=== PATIENT | male | born 1980 | race Native Hawaiian/Other Pacific Islander ===

== ENCOUNTER 2018-09-29 12:18 | Emergency (ER) | payer OTHER ==
[2018-09-29 12:23] VITALS: BP 134/88; PULSE 59; RESP 18; TEMP 97.9
[2018-09-29] MEDS ORDERED: ONDANSETRON 4 MG/2 ML VIAL IVP STA (12:53)
[2018-09-29] MEDS ORDERED: SODIUM CHLORIDE 0.9% 1,000 ML IV STA (12:53)
--- NOTE | 2018-09-29 13:00 | ED ---
General Adult HPI - General Chief complaint: Dizziness Stated complaint: Light Headed, Nausea Source: patient, RN notes reviewed, old records reviewed Mode of arrival: ambulatory Limitations: no limitations - History of Present Illness Initial comments: 38-year-old male patient with no pertinent past medical history presents to ED with dizziness, nausea. Patient states that this is been ongoing since approximately July. Patient reports that on 08/30 he presented to urgent care in [place] for this problem. Patient states that the laboratory investigations and told him that "his red blood cell count was low". Patient is scheduled to follow up with a [facility] template inspector on 10/18 for this problem. Patient comes in today because while at work he began to experience lightheadedness, nausea. 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 Patient denies syncope, presyncope, chest pain, shortness of breath, difficulty breathing, heart palpitations, fever/chills, vomiting and diarrhea. Systemic: Pt denies fatigue, myalgia, fever/chills, rash. Pt denies weakness, night sweats, weight loss. Neuro: Pt denies headache, visual disturbances, syncope or pre-syncope. HEENT: Pt denies ocular discharge or irritation, otalgia, rhinorrhea, pharyngitis or notable lymphadenopathy. Cardiopulmonary: Pt denies chest pain, SOB, heart palpitations, dyspnea on exertion. Abdominal/GI: Pt denies abdominal pain, v/d. : Pt denies dysuria, burning w/ urination, frequency/urgency. Denies new onset urinary or bowel incontinence. MSK: Pt denies myalgia, loss of strength or function in extremities. - Related Data Home Medications Medication Instructions Recorded Confirmed Cyanocobalamin (Vitamin B-12) 2,500 mcg PO DAILY 09/29/18 09/29/18 [Vitamin B12] Dextroamphetamine/Amphetamine 15 mg PO QAM 09/29/18 09/29/18 [Adderall Xr] Iron 18 mg PO DAILY 09/29/18 09/29/18 Naproxen 500 mg PO BID PRN 09/29/18 09/29/18 Allergies Allergy/AdvReac Type Severity Reaction Status Date / Time morphine Allergy Unknown Verified 09/29/18 13:44 Review of Systems ROS Statement: Those systems with pertinent positive or pertinent negative responses have been documented in the HPI. ROS Other: All systems not noted in ROS Statement are negative. Past Medical History Past Medical History: No Reported History History of Any Multi-Drug Resistant Organisms: None Reported Past Surgical History: Appendectomy, Orthopedic Surgery Past Psychological History: No Psychological Hx Reported Smoking Status: Never smoker Past Alcohol Use History: Occasional Past Drug Use History: None Reported General Exam - General Exam Comments Initial Comments: Constitutional: NAD, AOX3, Pt has pleasant affect. HEENT: NC/AT, trachea midline, neck supple, no lymphadenopathy. Posterior pharynx non erythematous, without exudates. External ears appear normal, without discharge. Mucous membranes moist. Eyes PERRLA, EOM intact. There is no scleral icterus. No pallor noted. Cardiopulmonary: RRR, no murmurs, rubs or gallops, no JVD noted. Lungs CTAB in anterior and posterior beckwith. No peripheral edema. Abdominal exam: Abdomen soft and non-distended. Abdomen non-tender to palpation in all 4 quadrants. Bowel sounds active in LLQ. No hepatosplenomegaly. Neuro: CN II-XII intact. Eyes PERRLA, EOM intact. No focal deficit. No facial droop. Derm: No ecchymosis noted on body. MSK: No cervical spine tenderness. No thoracic or lumbar spinal tenderness. 5 out of 5 strength in upper and lower extremities. Posterior tibialis pulse +2 bilaterally. Radial pulse +2 bilaterally. Full sensation upper and lower extremities. Limitations: no limitations Course Vital Signs 09/29/18 12:19 Temperature 97.9 F Pulse Rate 59 L Respiratory 18 Rate Blood Pressure 134/88 O2 Sat by Pulse 98 Oximetry Medical Decision Making - Medical Decision Making 30-year-old male patient with no pertinent past medical history presents to ED with dizziness, nausea. Patient states that this is been ongoing since approximately July. Patient reports that on 08/30 he presented to urgent care in [place] for this problem. Patient states that the laboratory investigations and told him that "his red blood cell count was low". Patient is scheduled to follow up with a [facility] template inspector on 10/18 for this problem. Patient comes in today because while at work he began to experience lightheadedness, nausea. 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 Patient denies syncope, presyncope, chest pain, shortness of breath, difficulty breathing, heart palpitations, fever/chills, vomiting and diarrhea. Physical exam patient did not display acute pathology. Neuro exam was within normal limits. No focal deficit, patient AOX3. Cardiopulmonary exam displayed regular rate and rhythm, lungs CTAB. Abdomen is nontender to palpation, no ecchymoses. Laboratory investigations were conducted including CBC, CMP. Both of them were not impressive. EKG did not display concern for acute ischemia. Patient did not submit order a urine sample. Patient declined IV fluids, Zofran for nausea. The offered both the patient, patient states he rather discussed home and rest he knows his blood count is normal. Patient notes that he has had moderately decreased by mouth intake of fluids today secondary to work. Discussed with patient that this could be contributory to his lightheadedness with exertion. Patient to follow-up with his PCP in 1-2 days. Patient to attend the template inspector appointment on 10/18. Patient to return to ED if any new signs or symptoms develop including chest pain, shortness of breath, presyncope, syncope, nausea vomiting diarrhea, abdominal pain, any other new symptoms. Case discussed with Dr. Hall. - Lab Data Result diagrams: 09/29/18 13:12 09/29/18 13:12 Lab Results 09/29/18 09/29/18 Range/Units 13:12 13:12 WBC 5.5 (3.8-10.6) k/uL RBC 5.15 (4.30-5.90) m/uL Hgb 14.2 (13.0-17.5) gm/dL Hct 42.8 (39.0-53.0) % MCV 83.2 (80.0-100.0) fL MCH 27.5 (25.0-35.0) pg MCHC 33.1 (31.0-37.0) g/dL RDW 14.0 (11.5-15.5) % Plt Count 223 (150-450) k/uL Neutrophils % 54 % Lymphocytes % 36 % Monocytes % 5 % Eosinophils % 2 % Basophils % 0 % Neutrophils # 3.0 (1.3-7.7) k/uL Lymphocytes # 2.0 (1.0-4.8) k/uL Monocytes # 0.3 (0-1.0) k/uL Eosinophils # 0.1 (0-0.7) k/uL Basophils # 0.0 (0-0.2) k/uL Sodium 143 (137-145) mmol/L Potassium 3.8 (3.5-5.1) mmol/L Chloride 105 (98-107) mmol/L Carbon Dioxide 27 (22-30) mmol/L Anion Gap 11 mmol/L BUN 13 (9-20) mg/dL Creatinine 0.84 (0.66-1.25) mg/dL Est GFR (CKD-EPI)AfAm >90 (>60 ml/min/1.73 sqM) Est GFR (CKD-EPI)NonAf >90 (>60 ml/min/1.73 sqM) Glucose 102 H (74-99) mg/dL Calcium 9.5 (8.4-10.2) mg/dL Total Bilirubin 0.6 (0.2-1.3) mg/dL AST 40 (17-59) U/L ALT 58 (21-72) U/L Alkaline Phosphatase 75 (38-126) U/L Total Protein 7.5 (6.3-8.2) g/dL Albumin 4.6 (3.5-5.0) g/dL Disposition Clinical Impression: Dizziness Disposition: HOME SELF-CARE Condition: Good Instructions: Dizziness (ED) Additional Instructions: Patient to adhere to previously discussed treatment plan and will take medication(s) as directed. Patient to follow up with PCP in 1-2 days. Patient to return to ED if symptoms do not improve. Is patient prescribed a controlled substance at d/c from ED?: No Referrals: None,Stated [Primary Care Provider] - 1-2 days Dannielle Kauffman MD [REFERRING] - 1-2 days Time of Disposition: 14:30
[2018-09-29] MEDS ORDERED: SODIUM CHLORIDE 0.9% 500 ML 500 ML IV STA (13:01)
[2018-09-29 13:34] LABS: Basophils % (A) 0 %; Eosinophils # (A) 0.1 k/uL (0-0.7); Eosinophils % (A) 2 %; HCT 42.8 % (39.0-53.0); HGB 14.2 gm/dL (13.0-17.5); Lymphocytes % (A) 36 %; MCH 27.5 pg (25.0-35.0); MCHC 33.1 g/dL (31.0-37.0); MCV 83.2 fL (80.0-100.0); Mean Platelet Volume 8.7; Monocytes # (A) 0.3 k/uL (0-1.0); Monocytes % (A) 5 %; Neutrophils % (A) 54 %; Platelet Count 223 k/uL (150-450); RBC 5.15 m/uL (4.30-5.90); WBC 5.5 k/uL (3.8-10.6)
[2018-09-29 13:49] LABS: ALT 58 U/L (21-72); AST 40 U/L (17-59); Albumin 4.6 g/dL (3.5-5.0); Alkaline Phosphatase 75 U/L (38-126); Anion Gap 11 mmol/L; Blood Urea Nitrogen 13 mg/dL (9-20); Calcium 9.5 mg/dL (8.4-10.2); Carbon Dioxide 27 mmol/L (22-30); Chloride 105 mmol/L (98-107); Glucose 102 mg/dL (74-99); Potassium 3.8 mmol/L (3.5-5.1); Sodium 143 mmol/L (137-145); Total Bilirubin 0.6 mg/dL (0.2-1.3); Total Protein 7.5 g/dL (6.3-8.2)
--- NOTE | 2018-09-30 11:57 | ED ---
Medical Decision Making - Lab Data Result diagrams: 09/29/18 13:12 09/29/18 13:12 Lab Results 09/29/18 09/29/18 Range/Units 13:12 13:12 WBC 5.5 (3.8-10.6) k/uL RBC 5.15 (4.30-5.90) m/uL Hgb 14.2 (13.0-17.5) gm/dL Hct 42.8 (39.0-53.0) % MCV 83.2 (80.0-100.0) fL MCH 27.5 (25.0-35.0) pg MCHC 33.1 (31.0-37.0) g/dL RDW 14.0 (11.5-15.5) % Plt Count 223 (150-450) k/uL Neutrophils % 54 % Lymphocytes % 36 % Monocytes % 5 % Eosinophils % 2 % Basophils % 0 % Neutrophils # 3.0 (1.3-7.7) k/uL Lymphocytes # 2.0 (1.0-4.8) k/uL Monocytes # 0.3 (0-1.0) k/uL Eosinophils # 0.1 (0-0.7) k/uL Basophils # 0.0 (0-0.2) k/uL Sodium 143 (137-145) mmol/L Potassium 3.8 (3.5-5.1) mmol/L Chloride 105 (98-107) mmol/L Carbon Dioxide 27 (22-30) mmol/L Anion Gap 11 mmol/L BUN 13 (9-20) mg/dL Creatinine 0.84 (0.66-1.25) mg/dL Est GFR (CKD-EPI)AfAm >90 (>60 ml/min/1.73 sqM) Est GFR (CKD-EPI)NonAf >90 (>60 ml/min/1.73 sqM) Glucose 102 H (74-99) mg/dL Calcium 9.5 (8.4-10.2) mg/dL Total Bilirubin 0.6 (0.2-1.3) mg/dL AST 40 (17-59) U/L ALT 58 (21-72) U/L Alkaline Phosphatase 75 (38-126) U/L Total Protein 7.5 (6.3-8.2) g/dL Albumin 4.6 (3.5-5.0) g/dL - EKG Data -: EKG Interpreted by Me EKG Comments: ventricular rate 51, MN interval 186, QRS 100, QT/QTc 462/425, sinus bradycardia , no concerns for acute ischemia. Disposition Clinical Impression: Dizziness Disposition: HOME SELF-CARE Condition: Good Instructions: Dizziness (ED) Additional Instructions: Patient to adhere to previously discussed treatment plan and will take medication(s) as directed. Patient to follow up with PCP in 1-2 days. Patient to return to ED if symptoms do not improve. Is patient prescribed a controlled substance at d/c from ED?: No Referrals: Dannielle Kauffman MD [REFERRING] - 1-2 days None,Stated [Primary Care Provider] - 1-2 days
== END 2018-09-29 14:40 | disposition home or self-care (01) ==
LOC: EC 12:18
DX: R42 Dizziness and giddiness (principal); R11.0 Nausea; Z79.899 Other long term (current) drug therapy; Z88.5 Allergy status to narcotic agent; Z53.29 Procedure and treatment not carried out because of patient's decision for other reasons
CPT/HCPCS: 36415; 80053; 85025; 93005; 99284

== ENCOUNTER 2022-12-02 07:22 | Emergency (ER) | payer OTHER ==
[2022-12-02 07:27] VITALS: TEMP 98
[2022-12-02] MEDS ORDERED: PROPARACAINE 0.5% OPHTH DROPS 15 ML BTL LEFT EYE STA (07:31)
[2022-12-02] MEDS ORDERED: FLUORESCEIN STRIPS 1 MG STRIP LEFT EYE ONE (07:31)
--- NOTE | 2022-12-02 08:01 | ED ---
Eye Problem HPI - General Chief complaint: Eye Problems Stated complaint: Eye injury Time Seen by Provider: 12/02/22 07:31 Source: patient, RN notes reviewed Mode of arrival: ambulatory Limitations: no limitations - History of Present Illness Initial comments: 42-year-old male presents emergency Department chief complaint left eye trauma. He states on Tuesday summary to a baseball Struck him in his left thigh. He states that he noticed some blood from his eye he states that he had some discomfort but managed Tuesday and Tuesday but states overnight he's had severe pain to his left eye. He states cannot open his eye is very photophobic, states his vision is very blurry his left eye. Patient denies any evaluation of this eye no prior issues. Patient states he has no blurred vision of his right eye he states his left eye is been tearing - Related Data Home Medications Medication Instructions Recorded Confirmed Cyanocobalamin (Vitamin B-12) 2,500 mcg PO DAILY 09/29/18 09/29/18 [Vitamin B12] Dextroamphetamine/Amphetamine 15 mg PO QAM 09/29/18 09/29/18 [Adderall Xr] Iron 18 mg PO DAILY 09/29/18 09/29/18 Naproxen 500 mg PO BID PRN 09/29/18 09/29/18 Allergies Allergy/AdvReac Type Severity Reaction Status Date / Time morphine Allergy Unknown Verified 12/02/22 07:23 Review of Systems ROS Statement: Those systems with pertinent positive or pertinent negative responses have been documented in the HPI. ROS Other: All systems not noted in ROS Statement are negative. Past Medical History Past Medical History: No Reported History History of Any Multi-Drug Resistant Organisms: None Reported Past Surgical History: Appendectomy, Orthopedic Surgery Past Psychological History: No Psychological Hx Reported Smoking Status: Never smoker Past Alcohol Use History: Occasional Past Drug Use History: None Reported General Exam Limitations: no limitations General appearance: alert, in no apparent distress Head exam: Present: atraumatic, normocephalic, normal inspection Eye exam: Present: PERRL, EOMI, conjunctival injection (Subconjunctival hemorrhage in the left), other (No hyphema). Absent: normal appearance, scleral icterus, periorbital swelling Pupils: Present: other (Intraocular pressure on the left 11, visual acuity 20/200 left) ENT exam: Present: normal exam, normal oropharynx, mucous membranes moist Neck exam: Present: normal inspection, full ROM. Absent: tenderness, meningismus, lymphadenopathy Respiratory exam: Present: normal lung sounds bilaterally. Absent: respiratory distress, wheezes, rales, rhonchi, stridor Cardiovascular Exam: Present: regular rate, normal rhythm, normal heart sounds. Absent: systolic murmur, diastolic murmur, rubs, gallop, clicks Course Vital Signs 12/02/22 07:24 Temperature 98 F Pulse Rate 67 Respiratory 16 Rate Blood Pressure 163/104 O2 Sat by Pulse 98 Oximetry Medical Decision Making - Medical Decision Making Was pt. sent in by a medical professional or institution (, [facility], AGILE SCRUM COACH, urgent care, hospital, or retirement...) When possible be specific @ -No Did you speak to anyone other than the patient for history (EMS, parent, family, police, friend...)? What history was obtained from this source @ -No Did you review nursing and triage notes (agree or disagree)? Why? @ -I reviewed and agree with nursing and triage notes Were old charts reviewed (outside hosp., previous admission, EMS record, old EKG, old radiological studies, urgent care reports/EKG's, retirement records)? Report findings @ -No old charts were reviewed Differential Diagnosis (chest pain, altered mental status, abdominal pain women, abdominal pain men, vaginal bleeding, weakness, fever, dyspnea, syncope, headache, dizziness, GI bleed, back pain, seizure, CVA, palpatations, mental health)? @ -Hyphema, traumatic iritis, corneal abrasion, corneal laceration, subconjunctival hemorrhage EKG interpreted by me (3pts min.). @ -None X-rays interpreted by me (1pt min.). @ -None done CT interpreted by me (1pt min.). @ -None done U/S interpreted by me (1pt. min.). @ -None done What testing was considered but not performed or refused? (CT, X-rays, U/S, labs )? Why? @ -None What meds were considered but not given or refused? Why? @ -None Did you discuss the management of the patient with other professionals (professionals i.e. , [facility], AGILE SCRUM COACH, lab, RT, psych nurse, manager social media, remote broadcast engineer, teacher, unclaimed property officer, rifle case repairer)? Give summary @ -Dr. Abraham ophthalmology who will evaluate the patient. Was smoking cessation discussed for >3mins.? @ -No Was critical care preformed (if so, how long)? @ -No Were there social determinants of health that impacted care today? How? (Homelessness, low income, unemployed, alcoholism, drug addiction, transportation, low edu. Level, literacy, decrease access to med. care, long-term, rehab)? @ -No Was there de-escalation of care discussed even if they declined (Discuss DNR or withdrawal of care, Hospice)? DNR status @ -No What co-morbidities impacted this encounter? (DM, HTN, Smoking, COPD, CAD, Cancer, CVA, ARF, Chemo, Hep., AIDS, mental health diagnosis, sleep apnea, morbid obesity)? @ -None Was patient admitted / discharged? Hospital course, mention meds given and route, prescriptions, significant lab abnormalities, going to OR and other pertinent info. @ -Discharged to ophthalmology's office for further evaluation believed to have traumatic iritis Undiagnosed new problem with uncertain prognosis? @ -No Drug Therapy requiring intensive monitoring for toxicity (Heparin, Nitro, Insulin, Cardizem)? @ -No Were any procedures done? @ -No Diagnosis/symptom? @ -Traumatic iritis Acute, or Chronic, or Acute on Chronic? @ -Acute Uncomplicated (without systemic symptoms) or Complicated (systemic symptoms)? @ -Uncomplicated Side effects of treatment? @ -No Exacerbation, Progression, or Severe Exacerbation? @ -No Poses a threat to life or bodily function? How? (Chest pain, USA, NC, pneumonia, PE, COPD, DKA, ARF, appy, cholecystitis, CVA, Diverticulitis, Homicidal, Suicidal, threat to staff... and all critical care pts) @ -No Disposition Clinical Impression: Traumatic iritis Disposition: HOME SELF-CARE Condition: Stable Instructions (If sedation given, give patient instructions): Iritis (ED) Additional Instructions: Please go directly to office as directed. Please return to the Emergency Department if symptoms worsen or any other concerns. Is patient prescribed a controlled substance at d/c from ED?: No Referrals: None,Stated [Primary Care Provider] - 1-2 days Juan Abraham MD [STAFF PHYSICIAN] - 1-2 days Time of Disposition: 08:51
[2022-12-02 09:05] VITALS: BP 154/90; PULSE 68; RESP 18
== END 2022-12-02 09:05 | disposition home or self-care (01) ==
LOC: EC 07:22
DX: H20.012 Primary iridocyclitis, left eye (principal); Z88.5 Allergy status to narcotic agent; W21.03XA Struck by baseball, initial encounter
CPT/HCPCS: 99283